=== PATIENT | female | born 1960 | race Two or more races ===

== ENCOUNTER 2020-05-25 17:51 | Emergency (ER) | payer MEDICARE, MEDICAID ==
[~2020-05-25] VITALS: Ht 170.2 cm; Wt 79.4 kg
[2020-05-25 17:58] VITALS: BP 164/83
== END 2020-05-25 18:06 | disposition left against medical advice (07) ==
LOC: ER 17:51
DX: R07.89 Other chest pain (principal); Z53.21 Procedure and treatment not carried out due to patient leaving prior to being seen by health care provider